=== PATIENT | female | born 1975 | race Caucasian/White ===

== ENCOUNTER 2016-08-11 09:30 | Emergency (ER) | payer MEDICAID ==
[2016-08-11 09:41] VITALS: TEMP 98.2; BMI 35.2
--- NOTE | 2016-08-11 09:59 | EDPRACDOC ---
- General Information Chief Complaint: Shoulder Pain Stated Complaint: RT SHOULDER PAIN Time Seen by Provider: 08/11/16 09:48 Information Source: Patient Home Medications: Home Medications Carvedilol 12.5 mg PO BID 08/11/16 Lisinopril/Hydrochlorothiazide [Lisinopril-Hctz 20-12.5 mg Tab] 1 tab PO DAILY 08/11/16 Naproxen Sodium [Aleve] 440 mg PO BID PRN 08/11/16 Omeprazole 20 mg PO DAILY 08/11/16 Oxycodone HCl [Roxicodone] 5 mg PO Q4 PRN #10 tablet 08/11/16 Prednisone [Deltasone] 20 mg PO BID #10 tablet 08/11/16 Allergies/Adverse Reactions: Allergies Allergy/AdvReac Type Severity Reaction Status Date / Time aspirin Allergy Mild Rash-Genera Verified 08/11/16 09:39 lized Sulfa (Sulfonamide Allergy Mild Rash-Genera Verified 08/11/16 09:39 Antibiotics) lized [Sulfa(Sulfonamide Antibiotics)] - History of Present Illness Onset: one week HPI: RIGHT SHOULDER PAIN X 1 WEEK, WORSE THIS AM. PT IS RIGHT HANDED. WORSE PAIN WITH MOVEMENT; TRIED ALEVE BUT NO RELIEF. PT LIFTS BOXES AT [employer] WITH BOTH HANDS. NO H/O SIMILAR PAIN. NO TRAUMA. ED Past Medical History - Patient Medical History Cardiac History: Reports: Hypertension Respiratory History: Reports: Asthma Psychological History: Reports: Depression Surgical History: Reports: Cholecystectomy, Hysterectomy (partial), Tonsillectomy/Adnoidectomy, Other (KNEE, BTL, D&C) - Family Medical History Reports: Diabetes (MOTHER) - Social Medical History Smoking Status: Never smoker - Physical Exam Constitutional: Alert (Awake), No apparent distress Oriented to: Time, Person, Place Last recorded Vital Signs: Last Vital Signs Temp 98.2 F 08/11/16 09:39 Pulse 69 08/11/16 09:39 Resp 20 08/11/16 09:39 BP 126/69 08/11/16 09:39 Pulse Ox 97 08/11/16 09:39 Oxygen Pulse Oxygen Saturation 97 O2 Device Room Air Oxygen Flow Rate Fraction of Inspired Oxygen ( FIO2) - HEENT Head: Normal ( normocephalic) Eye Exam: Normal (PERRL, EOMI, Sclera white) Oropharynx: Normal (Pharynx:Moist without exudate,Gums-no swelling) Nose: No Symptoms Reported (septum midline) Neck: Normal (FROM, trachea at midline) - Respiratory/Cardiovascular Respiratory: Normal - CTA (BBS clear to auscultation without adventitious sounds ) Cardiovascular: Normal (RRR without murmur, gallop or rub) - GI Auscultation: Normal (NABS) Palpation: Normal (Soft,No rebound or guarding, non distended) Tenderness: Non tender Manuel's Sign: Negative - Musculoskeletal Back: Normal (Non-Tender) Extremities: Normal (Normal tone, Pulses 2+ No cyanosis or edema, FROM) - Integumentary Skin: Normal, Warm, Dry, Other (SCARRED TRACK PUENTE B/L HANDS. PT REPORTS NO IVDA FOR YEARS.) Lymphatics: Normal (no adenopathy) - Neurologic Memory Impaired: Normal Motor Function: Normal (Normal tone, Pulses 2+ No cyanosis or edema, FROM) Cranial Nerve: Normal (CN II-X11 intact sensation, strength 5/5) Cerebellar: Normal Mood Description: Normal Perception: Normal Decision Time to Discharge: 10:55 - Departure Yes I personally saw and evaluated the patient. Disposition: Home Condition: Stable Final Diagnosis: Right shoulder pain Qualifiers: Chronicity: acute Qualified Code(s): M25.511 - Pain in right shoulder Instructions: RICE Therapy (ED), Shoulder Pain (ED) Education/Counseling Given To: Patient Education/Counseling Given Regarding: Diagnosis Referrals: Jazlyn Ocasio [facility] [Primary Care Provider] - One Week Prescriptions: New Oxycodone HCl [Roxicodone] 5 mg PO Q4 PRN #10 tablet PRN Reason: Pain Prednisone [Deltasone] 20 mg PO BID #10 tablet No Action Lisinopril/Hydrochlorothiazide [Lisinopril-Hctz 20-12.5 mg Tab] 1 tab PO DAILY Omeprazole 20 mg PO DAILY Carvedilol 12.5 mg PO BID Naproxen Sodium [Aleve] 440 mg PO BID PRN PRN Reason: Pain Forms: Excuse Note
--- NOTE | 2016-08-11 10:41 | DIRPT ---
CLINICAL DATA: Right shoulder pain for 1 week, no known injury, initial encounter EXAM: RIGHT SHOULDER - 2+ VIEW COMPARISON: 06/06/2015 FINDINGS: Mild degenerative changes of the acromioclavicular joint are seen. No fracture or dislocation is noted. No gross bony abnormality is seen. IMPRESSION: No acute abnormality noted. Electronically Signed By: Nadeem Garces M.D. On: 08/11/2016 10:38
[2016-08-11] MEDS ORDERED: PREDNISONE 20 MG TAB PO ONE (10:55)
[2016-08-11 11:44] VITALS: BP 127/78; PULSE 62
== END 2016-08-11 11:40 | disposition home or self-care (01) ==
LOC: ED 09:30 → EDINP 09:35 → UNDOADMIN 09:35 → ED 11:40
DX: M25.511 Pain in right shoulder (principal)
CPT/HCPCS: 73030; 99283; J3490